=== PATIENT | male | born 1955 | race Caucasian/White ===

== ENCOUNTER → 2016-06-09 | Outpatient (CLI) | payer BC ==
--- NOTE | 2016-06-09 11:51 | RADRPT ---
PROCEDURE: XR bilateral knees. CLINICAL INDICATION: Knee pain TECHNIQUE: AP weightbearing, PA weightbearing, lateral weightbearing and sunrise views of each kne e are available for review. COMPARISON: 01/26/2014 FINDINGS: The osseous structures are normal in mineralization, architecture and alignment. No fractures are i dentified. 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 The joints are unremarkable. The soft tissues are unremarkable. 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
== END | disposition home or self-care (01) ==
LOC: HKI 09:25
PROVIDERS: ATTEND Orthopaedic Surgery
DX: M25.561 Pain in right knee (principal); D16.9 Benign neoplasm of bone and articular cartilage, unspecified
CPT/HCPCS: 73564; G0463